=== PATIENT | female | born 1935 | race Caucasian/White ===

== ENCOUNTER 2017-10-22 10:52 | Emergency (ER) | payer OTHER ==
[~2017-10-22] VITALS: Ht 160 cm; Wt 56.5 kg
[2017-10-22 11:53] LABS: BASOPHIL (%) 0.8 % (0-1); BASOPHIL COUNT 0.1 K/uL (0-0.1); EOSINOPHIL (%) 2.7 % (0-5); EOSINOPHIL COUNT 0.2 K/uL (0-0.3); HEMATOCRIT 43.8 % (36.0-46.0); HEMOGLOBIN 14.5 G/DL (11.9-15.5); IMMATURE GRANULOCYTE (%) 0.9 % (0.0-0.7); LYMPHOCYTE (%) 15.2 % (15-42); LYMPHOCYTE COUNT 1.4 K/uL (1.0-2.8); MCH 29.8 PG (29.0-34.0); MCHC 33.1 G/DL (30.0-36.0); MCV 89.9 FL (83-99); MONOCYTE (%) 6.1 % (3-12); MONOCYTE COUNT 0.6 K/uL (0-0.8); NEUTROPHIL (%) 74.3 % (45-76); NEUTROPHIL COUNT 6.7 K/uL (1.8-6.4); PLATELET COUNT 309 K/uL (156-360); RBC DIS.WIDTH-CV 13.6 % (11.8-14.6); RED BLOOD COUNT 4.87 M/uL (3.80-5.20)
[2017-10-22 12:01] LABS: CHLORIDE 105 mEq/L (99-109); POTASSIUM 3.7 mEq/L (3.7-5.4); SODIUM 142 mEq/L (136-147)
[2017-10-22 12:03] LABS: GLUCOSE 93 mg/dL (70-99)
[2017-10-22 12:07] LABS: CREATININE 0.8 mg/dL (0.6-1.3)
[2017-10-22 12:08] LABS: UREA NITROGEN (BUN) 19 mg/dL (9-23)
[2017-10-22 12:09] LABS: GFR ESTIMATE (CALCULATED) > 59 mL/min/
[2017-10-22 15:58] VITALS: BP 155/100
[2017-10-23] MEDS ORDERED: BUSPAR5 MG PO (15:27)
[2017-10-23] MEDS ORDERED: ASPIRIN EC325 MG PO (15:27)
[2017-10-23] MEDS ORDERED: CARDIZEM CD,CA120 MG PO (15:28)
[2017-10-23] MEDS ORDERED: LEVOTHYROXINE100 MCG PO (15:28)
[2017-10-23] MEDS ORDERED: LORAZEPAM0.5 MG PO ×2 (15:29→15:32)
[2017-10-23] MEDS ORDERED: LOTENSIN HCT1 TABLE2 PO (15:29)
[2017-10-23] MEDS ORDERED: ROSUVASTATIN CAL5 MG PO (15:31)
[2017-10-23] MEDS ORDERED: SERTRALINE HCL50 MG PO (15:31)
[2017-10-23] MEDS ORDERED: ACETAMINOPHEN325 M1 PO (15:32)
== END 2017-10-22 15:58 | disposition home or self-care (01) ==
LOC: EME 10:52
PROVIDERS: Emergency Medicine
DX: S30.0XXA Contusion of lower back and pelvis, initial encounter (principal); W18.30XA Fall on same level, unspecified, initial encounter; Y92.129 Unspecified place in nursing home as the place of occurrence of the external cause; M43.16 Spondylolisthesis, lumbar region; M85.80 Other specified disorders of bone density and structure, unspecified site; M25.80 Other specified joint disorders, unspecified joint; I10 Essential (primary) hypertension; E78.5 Hyperlipidemia, unspecified; F02.80 Dementia in other diseases classified elsewhere, unspecified severity, without behavioral disturbance, psychotic disturbance, mood disturbance, and anxiety
CPT/HCPCS: 70450; 72040; 72100; 73030; 73502; 80048; 85025; 99281; 99284; J2060

== ENCOUNTER 2017-10-23 01:26 | Inpatient (IN) | payer OTHER ==
[~2017-10-23] VITALS: Ht 167.6 cm; Wt 63.2 kg
[2017-10-23 02:23] LABS: BASOPHIL (%) 0.8 % (0-1); BASOPHIL COUNT 0.1 K/uL (0-0.1); EOSINOPHIL COUNT 0.2 K/uL (0-0.3); HEMATOCRIT 38.4 % (36.0-46.0); IMMATURE GRANULOCYTE (%) 0.3 % (0.0-0.7); LYMPHOCYTE (%) 9.9 % (15-42); MCH 30.1 PG (29.0-34.0); MCHC 33.9 G/DL (30.0-36.0); MCV 88.9 FL (83-99); MONOCYTE (%) 5.4 % (3-12); MONOCYTE COUNT 0.5 K/uL (0-0.8); NEUTROPHIL (%) 81.6 % (45-76); NEUTROPHIL COUNT 7.8 K/uL (1.8-6.4); PLATELET COUNT 323 K/uL (156-360); RBC DIS.WIDTH-CV 13.4 % (11.8-14.6); RBC DIS.WIDTH-SD 43.8 % (39-53); RED BLOOD COUNT 4.32 M/uL (3.80-5.20); WHITE BLOOD COUNT 9.6 K/uL (4.1-10.2)
[2017-10-23 02:29] LABS: APPEARANCE CLEAR ((CLEAR)); BILIRUBIN NEGATIVE; BLOOD NEGATIVE; COLOR YELLOW ((YELLOW)); GLUCOSE (STRIP) NEGATIVE; KETONES NEGATIVE; LEUKOCYTES NEGATIVE; NITRITE NEGATIVE; PROTEIN (STRIP) NEGATIVE; SPECIFIC GRAVITY 1.023 (1.000-1.030); UCUL ADDED? NO
[2017-10-23 02:34] LABS: CHLORIDE 103 mEq/L (99-109); SODIUM 139 mEq/L (136-147)
[2017-10-23 02:37] LABS: GLUCOSE 145 mg/dL (70-99)
[2017-10-23 02:39] LABS: CREATININE 0.8 mg/dL (0.6-1.3); GFR ESTIMATE (CALCULATED) > 59 mL/min/
[2017-10-23 02:40] LABS: UREA NITROGEN (BUN) 18 mg/dL (9-23)
[2017-10-23 03:36] LABS: ALBUMIN 3.8 g/dL (3.2-4.8)
[2017-10-23 03:41] LABS: TOTAL BILIRUBIN 0.7 mg/dL (0.0-1.0)
[2017-10-23 03:42] LABS: ALKALINE PHOSPHATASE 93 IU/L (3-129)
[2017-10-23 03:44] LABS: AST (GOT) 15 IU/L (2-34)
[2017-10-23 03:45] LABS: ALT (GPT) 12 IU/L (3-49); DIRECT BILIRUBIN 0.3 mg/dL (0.0-0.3)
[2017-10-23 03:46] LABS: LIPASE 30 U/L (1.0-51.0)
[2017-10-23 11:51] VITALS: BP 178/84
[2017-10-23] MEDS ORDERED: BUSPAR5 MG PO (15:27)
[2017-10-23] MEDS ORDERED: ASPIRIN EC325 MG PO (15:27)
[2017-10-23] MEDS ORDERED: CARDIZEM CD,CA120 MG PO (15:28)
[2017-10-23] MEDS ORDERED: LEVOTHYROXINE100 MCG PO (15:28)
[2017-10-23] MEDS ORDERED: LORAZEPAM0.5 MG PO ×2 (15:29→15:32)
[2017-10-23] MEDS ORDERED: LOTENSIN HCT1 TABLE2 PO (15:29)
[2017-10-23] MEDS ORDERED: ROSUVASTATIN CAL5 MG PO (15:31)
[2017-10-23] MEDS ORDERED: SERTRALINE HCL50 MG PO (15:31)
[2017-10-23] MEDS ORDERED: ACETAMINOPHEN325 M1 PO (15:32)
[2017-10-23 17:01] VITALS: BP 160/72
[2017-10-23 19:40] VITALS: BP 165/80
[2017-10-23 23:24] VITALS: BP 160/80
[2017-10-24 07:50] VITALS: BP 171/81
[2017-10-24 11:27] VITALS: BP 124/82
[2017-10-24 15:31] VITALS: BP 125/80
[2017-10-24 23:24] VITALS: BP 136/62
[2017-10-24 23:24] LABS: HEMATOCRIT 35.9 % (36.0-46.0); HEMOGLOBIN 12.1 G/DL (11.9-15.5)
[2017-10-25 00:08] LABS: CHLORIDE 113 mEq/L (99-109); POTASSIUM 3.6 mEq/L (3.7-5.4); SODIUM 140 mEq/L (136-147)
[2017-10-25 00:13] LABS: CREATININE 0.8 mg/dL (0.6-1.3); GFR ESTIMATE (CALCULATED) > 59 mL/min/
[2017-10-25 00:14] LABS: UREA NITROGEN (BUN) 13 mg/dL (9-23)
[2017-10-25 00:18] LABS: GLUCOSE 93 mg/dL (70-99)
[2017-10-25 03:23] LABS: APPEARANCE CLOUDY ((CLEAR)); BILIRUBIN NEGATIVE; BLOOD LARGE; COLOR YELLOW ((YELLOW)); GLUCOSE (STRIP) NEGATIVE; KETONES NEGATIVE; LEUKOCYTES LARGE; NITRITE NEGATIVE; PROTEIN (STRIP) NEGATIVE; SPECIFIC GRAVITY 1.009 (1.000-1.030); UROBILINOGEN 0.2 MG/DL (0.2-1.0)
[2017-10-25 03:37] LABS: BACTERIA 3+ /HPF; EPITHELIAL CELLS RARE /HPF; MUCUS NONE SEEN /LPF; UCUL ADDED? YES; WHITE BLOOD CELLS TNTC /HPF (0-5)
[2017-10-25 05:33] LABS: C DIFF TOXIN NEGATIVE (NEGATIVE)
[2017-10-25 07:19] VITALS: BP 120/78
[2017-10-25 09:17] LABS: BASOPHIL COUNT 0.1 K/uL (0-0.1); EOSINOPHIL (%) 6.2 % (0-5); EOSINOPHIL COUNT 0.6 K/uL (0-0.3); HEMATOCRIT 37.1 % (36.0-46.0); IMMATURE GRANULOCYTE (%) 0.4 % (0.0-0.7); LYMPHOCYTE (%) 14.7 % (15-42); LYMPHOCYTE COUNT 1.4 K/uL (1.0-2.8); MCH 29.4 PG (29.0-34.0); MCHC 32.3 G/DL (30.0-36.0); MCV 90.9 FL (83-99); MONOCYTE (%) 7.1 % (3-12); MONOCYTE COUNT 0.7 K/uL (0-0.8); NEUTROPHIL (%) 70.6 % (45-76); NEUTROPHIL COUNT 6.6 K/uL (1.8-6.4); PLATELET COUNT 275 K/uL (156-360); RBC DIS.WIDTH-CV 13.9 % (11.8-14.6); RBC DIS.WIDTH-SD 46.7 % (39-53); RED BLOOD COUNT 4.08 M/uL (3.80-5.20); WHITE BLOOD COUNT 9.3 K/uL (4.1-10.2)
[2017-10-25 10:02] LABS: CHLORIDE 112 MEQ/L (99-109); POTASSIUM 3.6 MEQ/L (3.7-5.4); SODIUM 141 MEQ/L (136-147)
[2017-10-25 10:07] LABS: CREATININE 0.8 MG/DL (0.6-1.3); GFR ESTIMATE (CALCULATED) > 59 mL/min/; GLUCOSE 89 mg/dL (70-99); UREA NITROGEN (BUN) 13 mg/dL (9-23)
[2017-10-25 15:53] VITALS: BP 120/55
[2017-10-25 22:59] VITALS: BP 116/55
[2017-10-26 05:59] VITALS: BP 149/69
[2017-10-26 07:43] VITALS: BP 163/70
[2017-10-26 10:19] LABS: BASOPHIL (%) 1.3 % (0-1); BASOPHIL COUNT 0.1 K/uL (0-0.1); EOSINOPHIL (%) 5.9 % (0-5); EOSINOPHIL COUNT 0.4 K/uL (0-0.3); HEMATOCRIT 36.1 % (36.0-46.0); HEMOGLOBIN 11.7 G/DL (11.9-15.5); IMMATURE GRANULOCYTE (%) 0.3 % (0.0-0.7); LYMPHOCYTE (%) 13.3 % (15-42); LYMPHOCYTE COUNT 0.9 K/uL (1.0-2.8); MCH 29.9 PG (29.0-34.0); MCHC 32.4 G/DL (30.0-36.0); MCV 92.3 FL (83-99); MONOCYTE (%) 6.6 % (3-12); MONOCYTE COUNT 0.5 K/uL (0-0.8); NEUTROPHIL (%) 72.6 % (45-76); NEUTROPHIL COUNT 5.1 K/uL (1.8-6.4); PLATELET COUNT 278 K/uL (156-360); RBC DIS.WIDTH-CV 13.9 % (11.8-14.6); RBC DIS.WIDTH-SD 47.3 % (39-53); RED BLOOD COUNT 3.91 M/uL (3.80-5.20); WHITE BLOOD COUNT 7.1 K/uL (4.1-10.2)
[2017-10-26 10:48] LABS: CHLORIDE 108 MEQ/L (99-109); CREATININE 1.1 MG/DL (0.6-1.3); GFR ESTIMATE (CALCULATED) 50 mL/min/; POTASSIUM 3.2 MEQ/L (3.7-5.4); SODIUM 141 MEQ/L (136-147); UREA NITROGEN (BUN) 17 mg/dL (9-23)
[2017-10-26 10:49] LABS: GLUCOSE 174 mg/dL (70-99)
[2017-10-26 15:19] VITALS: BP 162/74
[2017-10-26 19:29] LABS: APPEARANCE SL.HAZY ((CLEAR)); BILIRUBIN NEGATIVE; BLOOD MODERATE; COLOR YELLOW ((YELLOW)); GLUCOSE (STRIP) NEGATIVE; KETONES NEGATIVE; LEUKOCYTES LARGE; NITRITE POSITIVE; PROTEIN (STRIP) NEGATIVE; SPECIFIC GRAVITY 1.005 (1.000-1.030); UROBILINOGEN 0.2 MG/DL (0.2-1.0)
[2017-10-26 20:31] LABS: BACTERIA 3+ /HPF; EPITHELIAL CELLS NONE SEEN /HPF; MUCUS NONE SEEN /LPF; RED BLOOD CELLS 0-5 /HPF (0-5); UCUL ADDED? YES; WHITE BLOOD CELLS TNTC /HPF (0-5)
[2017-10-26 23:24] VITALS: BP 142/61
[2017-10-27 08:50] VITALS: BP 134/61
[2017-10-29 07:24] VITALS: BP 142/63
[2017-10-29 12:00] LABS: CHLORIDE 105 MEQ/L (99-109); CREATININE 0.9 MG/DL (0.6-1.3); GFR ESTIMATE (CALCULATED) > 59 mL/min/; GLUCOSE 94 mg/dL (70-99); POTASSIUM 3.7 MEQ/L (3.7-5.4); SODIUM 142 MEQ/L (136-147); UREA NITROGEN (BUN) 19 mg/dL (9-23)
[2017-10-29] MEDS ORDERED: DEPAKENE250 MG PO (15:23)
[2017-10-29] MEDS ORDERED: CEFTIN500 MG PO (15:23)
[2017-10-29] MEDS ORDERED: QUETIAPINE FUMA25 MG PO (15:23)
[2017-10-29] MEDS ORDERED: DONEPEZIL HCL5 MG PO (15:23)
== END 2017-10-29 18:30 | disposition home or self-care (01) | DRG 57 ==
LOC: EME 01:26 → 3EAST 04:40 → EDOF 04:40 → ENRESERV 04:56 → 3EAST 10:49 → ENPENDDIS 10-29 17:18 → 3EAST 10-29 18:30
PROVIDERS: Emergency Medicine; Internal Medicine
DX: G30.9 Alzheimer's disease, unspecified (principal); F02.81 Dementia in other diseases classified elsewhere, unspecified severity, with behavioral disturbance; F01.51 Vascular dementia, unspecified severity, with behavioral disturbance; F05 Delirium due to known physiological condition; S00.03XA Contusion of scalp, initial encounter; W18.30XA Fall on same level, unspecified, initial encounter; Y92.129 Unspecified place in nursing home as the place of occurrence of the external cause; N95.2 Postmenopausal atrophic vaginitis; I10 Essential (primary) hypertension; E87.6 Hypokalemia; E78.5 Hyperlipidemia, unspecified; R29.6 Repeated falls; E03.9 Hypothyroidism, unspecified; F41.9 Anxiety disorder, unspecified; F32.9 Major depressive disorder, single episode, unspecified
CPT/HCPCS: 70450; 71045; 72040; 72100; 73030; 73502; 76857; 80048; 80076; 81003; 83690; 85014; 85018; 85025; 87077; 87086; 87186; 87493; 99281; 99284; 99285; J1630; J1644; J2060; J3480; J7030

== ENCOUNTER 2017-11-22 10:55 | Emergency (ER) | payer OTHER ==
[~2017-11-22] VITALS: Ht 170.2 cm; Wt 57.9 kg
[~2017-11-22 10:55] MED LIST: ACETAMINOPHEN325 M1 PO; ASPIRIN EC325 MG PO; BUSPAR5 MG PO; CARDIZEM CD,CA120 MG PO; CEFTIN500 MG PO; DEPAKENE250 MG PO; DONEPEZIL HCL5 MG PO; LEVOTHYROXINE100 MCG PO; LORAZEPAM0.5 MG PO; LOTENSIN HCT1 TABLE2 PO; QUETIAPINE FUMA25 MG PO; ROSUVASTATIN CAL5 MG PO; SERTRALINE HCL50 MG PO
[2017-11-22 11:52] LABS: BASOPHIL (%) 0.8 % (0-1); BASOPHIL COUNT 0.1 K/uL (0-0.1); EOSINOPHIL (%) 1.9 % (0-5); EOSINOPHIL COUNT 0.2 K/uL (0-0.3); HEMATOCRIT 40.3 % (36.0-46.0); HEMOGLOBIN 13.1 G/DL (11.9-15.5); IMMATURE GRANULOCYTE (%) 0.2 % (0.0-0.7); LYMPHOCYTE (%) 10.1 % (15-42); LYMPHOCYTE COUNT 0.9 K/uL (1.0-2.8); MCH 30.3 PG (29.0-34.0); MCHC 32.5 G/DL (30.0-36.0); MCV 93.1 FL (83-99); MONOCYTE (%) 7.5 % (3-12); MONOCYTE COUNT 0.7 K/uL (0-0.8); NEUTROPHIL (%) 79.5 % (45-76); NEUTROPHIL COUNT 6.9 K/uL (1.8-6.4); PLATELET COUNT 302 K/uL (156-360); RBC DIS.WIDTH-CV 14.5 % (11.8-14.6); RBC DIS.WIDTH-SD 49.6 % (39-53); RED BLOOD COUNT 4.33 M/uL (3.80-5.20); WHITE BLOOD COUNT 8.7 K/uL (4.1-10.2)
[2017-11-22 12:01] LABS: CHLORIDE 105 mEq/L (99-109); POTASSIUM 3.7 mEq/L (3.7-5.4); SODIUM 141 mEq/L (136-147)
[2017-11-22 12:03] LABS: GLUCOSE 94 mg/dL (70-99)
[2017-11-22 12:07] LABS: CREATININE 1.1 mg/dL (0.6-1.3); GFR ESTIMATE (CALCULATED) 50 mL/min/
[2017-11-22 12:08] LABS: UREA NITROGEN (BUN) 32 mg/dL (9-23)
[2017-11-22 16:16] VITALS: BP 132/51
== END 2017-11-22 16:27 | disposition home or self-care (01) ==
LOC: EME 10:55
PROVIDERS: Emergency Medicine
DX: R10.84 Generalized abdominal pain (principal); R19.7 Diarrhea, unspecified; I10 Essential (primary) hypertension; E78.5 Hyperlipidemia, unspecified; F03.90 Unspecified dementia, unspecified severity, without behavioral disturbance, psychotic disturbance, mood disturbance, and anxiety; Z79.82 Long term (current) use of aspirin
CPT/HCPCS: 80048; 85025; 87493; 99281; 99284

== ENCOUNTER 2018-02-11 00:14 | Inpatient (IN) | payer OTHER ==
[~2018-02-11] VITALS: Ht 160 cm; Wt 56.5 kg
[~2018-02-11 00:14] MED LIST changes: -CARDIZEM CD,CA120 MG PO; +DILTIAZEM 24HR120 MG PO
[2018-02-11 00:56] LABS: BASOPHIL (%) 0.4 % (0-1); BASOPHIL COUNT 0.1 K/uL (0-0.1); EOSINOPHIL (%) 0.8 % (0-5); EOSINOPHIL COUNT 0.1 K/uL (0-0.3); HEMATOCRIT 38.9 % (36.0-46.0); HEMOGLOBIN 12.8 G/DL (11.9-15.5); IMMATURE GRANULOCYTE (%) 0.4 % (0.0-0.7); LYMPHOCYTE (%) 5.9 % (15-42); LYMPHOCYTE COUNT 0.7 K/uL (1.0-2.8); MCHC 32.9 G/DL (30.0-36.0); MCV 91.1 FL (83-99); MONOCYTE (%) 9.9 % (3-12); MONOCYTE COUNT 1.2 K/uL (0-0.8); NEUTROPHIL (%) 82.6 % (45-76); NEUTROPHIL COUNT 9.8 K/uL (1.8-6.4); PLATELET COUNT 214 K/uL (156-360); RBC DIS.WIDTH-CV 14.3 % (11.8-14.6); RBC DIS.WIDTH-SD 47.7 % (39-53); RED BLOOD COUNT 4.27 M/uL (3.80-5.20); WHITE BLOOD COUNT 11.9 K/uL (4.1-10.2)
[2018-02-11 01:01] LABS: APPEARANCE CLEAR ((CLEAR)); BILIRUBIN NEGATIVE; BLOOD SMALL; COLOR YELLOW ((YELLOW)); GLUCOSE (STRIP) NEGATIVE; KETONES NEGATIVE; LEUKOCYTES NEGATIVE; NITRITE NEGATIVE; PROTEIN (STRIP) NEGATIVE; UROBILINOGEN 0.2 MG/DL (0.2-1.0)
[2018-02-11 01:06] LABS: ALBUMIN 3.9 g/dL (3.2-4.8)
[2018-02-11 01:06] LABS: BACTERIA NONE SEEN /HPF; EPITHELIAL CELLS NONE SEEN /HPF; MUCUS TRACE /LPF; UCUL ADDED? NO; WHITE BLOOD CELLS 0-5 /HPF (0-5)
[2018-02-11 01:07] LABS: CHLORIDE 104 mEq/L (99-109); POTASSIUM 3.5 mEq/L (3.7-5.4); SODIUM 140 mEq/L (136-147)
[2018-02-11 01:09] LABS: GLUCOSE 148 mg/dL (70-99)
[2018-02-11 01:11] LABS: TOTAL BILIRUBIN 0.4 mg/dL (0.0-1.0)
[2018-02-11 01:12] LABS: ALKALINE PHOSPHATASE 102 IU/L (3-129)
[2018-02-11 01:13] LABS: GFR ESTIMATE (CALCULATED) 56 mL/min/
[2018-02-11 01:14] LABS: AST (GOT) 24 IU/L (2-34); UREA NITROGEN (BUN) 25 mg/dL (9-23)
[2018-02-11 01:16] LABS: ALT (GPT) 16 IU/L (3-49); LIPASE 95 U/L (1.0-51.0)
[2018-02-11 01:19] LABS: TROP-I INTERPRETATION NEGATIVE; TROPONIN-I < 0.01 ng/mL (0.0-0.30)
[2018-02-11 05:51] VITALS: BP 121/58
[2018-02-11 05:56] VITALS: BP 121/58
[2018-02-11 08:49] VITALS: BP 153/69
[2018-02-11] MEDS ORDERED: LORAZEPAM0.5 MG PO ×2 (09:56→10:01)
[2018-02-11] MEDS ORDERED: BUSPIRONE HCL5 MG PO (09:58)
[2018-02-11] MEDS ORDERED: CRANBERRY PLUS1 EAC1 PO (09:59)
[2018-02-11] MEDS ORDERED: K-DUR20 MEQ PO (10:03)
[2018-02-12 04:39] VITALS: BP 129/60
[2018-02-12 07:38] VITALS: BP 110/79
[2018-02-12 11:41] VITALS: BP 150/58
[2018-02-12 19:45] VITALS: BP 142/63
[2018-02-12 23:34] VITALS: BP 160/88
[2018-02-13 03:30] VITALS: BP 164/86
[2018-02-13 07:01] LABS: CHLORIDE 110 MEQ/L (99-109); CREATININE 0.7 MG/DL (0.6-1.3); GFR ESTIMATE (CALCULATED) > 59 mL/min/; SODIUM 144 MEQ/L (136-147); UREA NITROGEN (BUN) 12 mg/dL (9-23)
[2018-02-13 07:06] LABS: GLUCOSE 86 mg/dL (70-99); POTASSIUM 4.4 MEQ/L (3.7-5.4)
[2018-02-13 08:20] VITALS: BP 174/80
[2018-02-13] MEDS ORDERED: QUETIAPINE FUMA25 MG PO (09:26)
[2018-02-13 12:17] VITALS: BP 133/82
[2018-02-13 16:48] VITALS: BP 141/61
== END 2018-02-13 17:36 | disposition home or self-care (01) | DRG 84 ==
LOC: EME 00:14 → EDOF 04:22 → 3EAST 04:22 → ENRESERV 04:25 → 3EAST 05:38
PROVIDERS: Emergency Medicine; Internal Medicine
DX: S06.5X9A Traumatic subdural hemorrhage with loss of consciousness of unspecified duration, initial encounter (principal); I95.9 Hypotension, unspecified; R50.9 Fever, unspecified; W19.XXXA Unspecified fall, initial encounter; G30.9 Alzheimer's disease, unspecified; F02.80 Dementia in other diseases classified elsewhere, unspecified severity, without behavioral disturbance, psychotic disturbance, mood disturbance, and anxiety; E78.5 Hyperlipidemia, unspecified; I10 Essential (primary) hypertension; F41.9 Anxiety disorder, unspecified; F32.9 Major depressive disorder, single episode, unspecified; E03.9 Hypothyroidism, unspecified; R29.6 Repeated falls; Z66 Do not resuscitate; Z88.0 Allergy status to penicillin; Z88.2 Allergy status to sulfonamides
CPT/HCPCS: 70450; 71045; 74177; 80048; 80053; 81003; 83605; 83690; 84484; 85025; 87040; 92610 GN; 93005; 99281; 99285; J0456; J0696; J1630; J2060; J3480

== ENCOUNTER 2018-04-26 14:22 | Emergency (ER) | payer OTHER ==
[~2018-04-26] VITALS: Ht 160 cm; Wt 69.1 kg
[~2018-04-26 14:22] MED LIST changes: +BUSPIRONE HCL5 MG PO; +CRANBERRY PLUS1 EAC1 PO; +K-DUR20 MEQ PO
[2018-04-26 15:01] LABS: BASOPHIL (%) 0.6 % (0-1); BASOPHIL COUNT 0.1 K/uL (0-0.1); EOSINOPHIL (%) 1.3 % (0-5); EOSINOPHIL COUNT 0.1 K/uL (0-0.3); HEMATOCRIT 40.2 % (36.0-46.0); IMMATURE GRANULOCYTE (%) 0.5 % (0.0-0.7); LYMPHOCYTE (%) 10.8 % (15-42); LYMPHOCYTE COUNT 1.1 K/uL (1.0-2.8); MCH 29.8 PG (29.0-34.0); MCHC 32.3 G/DL (30.0-36.0); MCV 92.2 FL (83-99); MONOCYTE (%) 5.7 % (3-12); MONOCYTE COUNT 0.6 K/uL (0-0.8); NEUTROPHIL (%) 81.1 % (45-76); NEUTROPHIL COUNT 8.3 K/uL (1.8-6.4); PLATELET COUNT 258 K/uL (156-360); RBC DIS.WIDTH-CV 14.6 % (11.8-14.6); RBC DIS.WIDTH-SD 49.4 % (39-53); RED BLOOD COUNT 4.36 M/uL (3.80-5.20); WHITE BLOOD COUNT 10.2 K/uL (4.1-10.2)
[2018-04-26 15:09] LABS: CHLORIDE 104 mEq/L (99-109); POTASSIUM 3.8 mEq/L (3.7-5.4); SODIUM 139 mEq/L (136-147)
[2018-04-26 15:11] LABS: GLUCOSE 164 mg/dL (70-99)
[2018-04-26 15:15] LABS: GFR ESTIMATE (CALCULATED) 56 mL/min/
[2018-04-26 15:16] LABS: UREA NITROGEN (BUN) 19 mg/dL (9-23)
[2018-04-26 15:17] LABS: CREATINE KINASE 101 IU/L (1-294); TOTAL CK 101 IU/L (1-294)
[2018-04-26 15:18] LABS: APPEARANCE CLEAR ((CLEAR)); BILIRUBIN NEGATIVE; BLOOD NEGATIVE; COLOR AMBER ((YELLOW)); GLUCOSE (STRIP) NEGATIVE; KETONES NEGATIVE; LEUKOCYTES NEGATIVE; NITRITE NEGATIVE; PROTEIN (STRIP) NEGATIVE; SPECIFIC GRAVITY 1.015 (1.000-1.030); UCUL ADDED? NO
[2018-04-26 15:23] LABS: CK-MB 4.9 ng/mL (0.0-4.9); CKMB RELATIVE INDEX 4.9 (0.0-3.9)
[2018-04-26 17:25] VITALS: BP 107/67
== END 2018-04-26 17:45 | disposition home or self-care (01) ==
LOC: EME 14:22
PROVIDERS: Emergency Medicine
DX: R19.7 Diarrhea, unspecified (principal); F03.90 Unspecified dementia, unspecified severity, without behavioral disturbance, psychotic disturbance, mood disturbance, and anxiety; I10 Essential (primary) hypertension; E78.5 Hyperlipidemia, unspecified; J43.9 Emphysema, unspecified; E03.9 Hypothyroidism, unspecified; Z79.82 Long term (current) use of aspirin; Z87.891 Personal history of nicotine dependence; Z90.49 Acquired absence of other specified parts of digestive tract
CPT/HCPCS: 70450; 72125; 80048; 81003; 82550; 82553; 85025; 93005; 99281; 99283